=== PATIENT | male | born 2005 | race Caucasian/White ===

== ENCOUNTER 2024-03-03 16:52 | Emergency (ER) | payer MEDICAID ==
[~2024-03-03] VITALS: Ht 167.6 cm; Wt 75.9 kg
[2024-03-03 17:33] LABS: BASOPHILS % (AUTO) 0.4 % (0-1); EOSINOPHILS # (AUTO) 0.1 X10'3 (0-0.9); EOSINOPHILS % (AUTO) 1.6 % (0-6); HEMATOCRIT 47.4 % (42.0-52.0); HEMOGLOBIN 16.2 g/dl (14.0-17.9); LYMPHOCYTES # (AUTO) 1.9 X10'3 (1.1-4.8); LYMPHOCYTES % (AUTO) 25.4 % (21-51); MEAN CORPUSCULAR HEMOGLOBIN 28.8 PG (27.0-31.0); MEAN CORPUSCULAR HGB CONC 34.1 g/dL (33.0-36.5); MEAN CORPUSCULAR VOLUME 84.5 FL (78-98); MEAN PLATELET VOLUME 8.3 FL (7.4-10.4); MONOCYTES # (AUTO) 0.6 X10'3 (0-0.9); MONOCYTES % (AUTO) 8.5 % (2-12); NEUTROPHILS # (AUTO) 4.8 X10'3 (1.8-7.7); NEUTROPHILS % (AUTO) 64.1 % (42-75); PLATELET COUNT 264 X10'3 (140-440); RED BLOOD COUNT 5.61 X10'6 (4.70-6.10); RED CELL DISTRIBUTION WIDTH 13.1 % (11.5-14.5); WHITE BLOOD COUNT 7.5 X10'3 (4.5-11.0)
[2024-03-03 17:46] LABS: APTT 28 SECONDS (22-32); INR 1.1 INR; PROTHROMBIN TIME 11.3 SECONDS (9.0-12.0)
[2024-03-03 17:48] LABS: ALANINE AMINOTRANSFERASE 8 U/L (12-78); ALBUMIN/GLOBULIN RATIO 0.9 (1.1-1.5); ALKALINE PHOSPHATASE 101 IU/L (20-180); ANION GAP 6 (8-16); ASPARTATE AMINO TRANSFERASE 9 U/L (10-37); BILIRUBIN,TOTAL 0.6 MG/DL (0.1-1.0); BLOOD UREA NITROGEN 11 MG/DL (7-18); BUN/CREATININE RATIO 13.8 (10.0-20.0); C-REACTIVE PROTEIN 5.36 MG/DL (0.0-0.5); CALCIUM 9.1 MG/DL (8.5-10.1); CHLORIDE 101 MMOL/L (99-107); GLUCOSE 104 MG/DL (70-104); POTASSIUM 3.5 MMOL/L (3.5-5.1); SODIUM 138 MMOL/L (135-145); TOTAL PROTEIN 8.4 G/DL (6.4-8.2); eCRCL 134 ML/MIN; eGFR > 90 ML/MIN
[2024-03-03 18:02] VITALS: BP 119/68; PULSE 85; RESP 16; O2SAT 99
[2024-03-03] MEDS ORDERED: AMOX-117 PO (18:14)
[2024-03-03] MEDS: dexamethasone sod phosphate 10mg/ml inj IM STA (18:37)
[2024-03-03 18:40] VITALS: TEMP 97.5
== END 2024-03-03 18:46 | disposition home or self-care (01) ==
LOC: ER 16:53
DX: K04.7 Periapical abscess without sinus (principal); R79.1 Abnormal coagulation profile; Z79.2 Long term (current) use of antibiotics
CPT/HCPCS: 36415; 70486; 80053; 83605; 84145; 85025; 85610; 85651; 85730; 86140; 87040; 96372; 99285; J1100